=== PATIENT | female | born 1990 | race Caucasian/White ===

== ENCOUNTER 2023-04-12 23:57 | Observation (INO) | payer BC ==
[2023-04-13 01:04] VITALS: BMI 29.1
[2023-04-13] MEDS ORDERED: Acetaminophen 650 MG Suppository PR PRN (01:41)
[2023-04-13] MEDS ORDERED: Acetaminophen 325 MG TAB PO PRN (01:41)
[2023-04-13] MEDS ORDERED: Ondansetron PF 4 MG/2 ML Vial IVP PRN (01:41)
[2023-04-13] MEDS ORDERED: Ondansetron ODT 4 MG TAB PO PRN (01:41)
[2023-04-13] MEDS ORDERED: Morphine 4 MG/ML VIAL SLOW IVP PRN (01:43)
[2023-04-13] MEDS ORDERED: diphenhydrAMINE 50 MG/ML VIAL IVP PRN (01:43)
[2023-04-13] MEDS ORDERED: Crotalidae Polyvlnt Antivenin 4 GM in Sodium Chloride 0.9% 250 ML 250 ML IVPB SCH (01:45)
[2023-04-13] MEDS ORDERED: ANTIVENIN,CROTALIDAE (ANAVIP) 10 EACH in Sodium Chloride 0.9% 250 ML 250 ML IVPB SCH (02:00)
[2023-04-13 06:18] LABS: #Eosinphils 0.1 thou/uL (0.0-0.7); #Monocytes 0.9 thou/uL (0.11-0.59); #Neutrophils 9.1 thou/uL (1.40-6.50); %Basophils 0.3 % (0.0-1.0); %Lymphocytes 21.8 % (21.0-51.0); %Monocytes 6.8 % (0.0-10.0); %Neutrophils 69.7 % (42.0-75.0); Hemoglobin 11.4 g/dL (12.0-16.0); Mean Corpuscular HGB CONC 31.1 g/dL (32.0-36.0); Mean Corpuscular Hemoglobin 24.7 pg (27.0-31.0); Mean Corpuscular Volume 79.4 fl (78.0-98.0); Mean Platelet Volume 9.5 fL (7.4-10.4); Platelet Count 328 10x3/uL (130-400); RBC Distribution Width 15.6 % (11.5-14.5); Red Blood Cell (RBC) Count 4.62 mill/uL (4.20-5.40); White Blood Cell (WBC) Count 13.1 10x3/uL (4.8-10.8)
[2023-04-13 06:40] LABS: Anion Gap 9 mmol/L (10-20); BUN (Urea Nitrogen) 11 mg/dL (7.0-18.7); Calc. Creatinine Clearance 141 mL/min (70-130); Calcium 8.8 mg/dL (7.8-10.44); Carbon Dioxide 25 mmol/L (22-29); Chloride 107 mmol/L (98-107); Estimated GFR 117; Glucose 88 mg/dL (70-105); Potassium 3.6 mmol/L (3.5-5.1); Sodium 137 mmol/L (136-145)
[2023-04-13] MEDS ORDERED: ANTIVENIN,CROTALIDAE (ANAVIP) 4 EACH in Sodium Chloride 0.9% 250 ML 250 ML IVPB SCH (11:00)
[2023-04-14 07:54] VITALS: BP 104/66; TEMP 98.2
== END 2023-04-14 10:14 | disposition home or self-care (01) ==
LOC: T4-A 04-13 00:51
PROVIDERS: ADMIT Student in an Organized Health Care Education/Training Program; ATTEND Family Medicine
DX: T63.001A Toxic effect of unspecified snake venom, accidental (unintentional), initial encounter (principal)
CPT/HCPCS: 36415; 80048; 85025; 96374; 96375; 96376; G0378; J0841; J2270; J7050